=== PATIENT | female | born 1990 | race Hispanic/Latino ===

== ENCOUNTER 2018-04-17 05:50 | Inpatient (IN) | payer OTHER ==
[~2018-04-17] VITALS: Ht 152.4 cm; Wt 79.8 kg
[2018-04-17 07:18] VITALS: BP 92/60
[2018-04-17] MEDS ORDERED: PRENATABS RX T1 EACH PO (07:19)
--- NOTE | 2018-04-17 07:34 | History & Physical Pre-Op ---
General Information and HPI MD Statement: I have seen and personally examined MAU PEDERSEN and documented this H&P. The patient is a 28 year old F who presented with a patient stated chief complaint of her to have my baby []. History of Present Illness: 28-year-old 2 para 1001 at 39 weeks gestation section patient is here limited she has some CANNABIS in her urine Allergies/Medications Allergies: Coded Allergies: NO KNOWN ALLERGIES (06/02/11) Home Med list Vit #76/Iron,Carb/FA (Prenatabs Rx Tablet) 29 MG IRON-1 MG TABLET 1 TAB PO DAILY (Reported) Past History Medical History Tetanus Vaccine: Surgical History Pertinent Surgical History: Past Family/Social History Psychosocial History Smoking Status: Never Smoked Review of Systems Review of Systems: 13 point review of systems Exam & Diagnostic Data Last 24 Hrs of Vital Signs/I&O Vital Signs Date Time Temp Pulse Resp B/P B/P Pulse O2 O2 Flow FiO2 Mean Ox Delivery Rate 04/17 0718 92/60 Intake & Output 04/17 0800 04/17 0000 04/16 1600 Intake Total Output Total Balance Patient 176 lb Weight Physical Exam: PT female in no apparent distress HEENT anicteric Lungs clear Abdomen estimated weight 3400 Long and closed extremities negative edema Assessment/Plan Assessment/Plan: Assessment is term previous section section As Ranked By This Provider Problem List: 1. NORMAL
--- NOTE | 2018-04-17 08:48 | Operative Report ---
Operative/Inv Procedure Report Surgery Date: 04/17/18 Name of Procedure: Repeat low flap transverse section Via Pfannenstiel skin incision Pre-Operative Diagnosis: Term previous section Post-Operative Diagnosis: Same Estimated Blood Loss: 712 Surgeon/Take Up Supervisor: Deuce SKELTON,Alexandra Burnette then Anesthesia: block Operative/Procedure Note Note: Procedure note patient was taken to the operating room placed after adequate spinal anesthesia testing surgery timeout the abdomen was prepped with old Pfannenstiel skin incision skin was carried down to rectus fascia rectus sheath was dissected over the abdominal wall was clear. Sharply. No cavity was entered bluntly oblate amount was placed in the incision this point the visceral peritoneum was a bladder flap was developed in the lower uterine segment. was delivered of the abdominal wall was cut and the infant was handed to pediatricians waiting delivery to aid in the resuscitation. Placenta was manually noted to be intact the uterus is likely due to retrolisthesis received with her membranes intravenous fluids intramyometrial as well as intramuscular Methergine was used for uterine contractility was apparent use is also a long locked suture of 0.1 locking suture interrupted [id number] stasis this point the abdomen was irrigated to clear. He is 0.0 at this point the fascia was reapproximated with #1 Findings: Viable female infant three-vessel cord normal tubes and ovaries bilaterally adhesions from the bladder to the lower uterine segment
[2018-04-18 06:42] LABS: ABSOLUTE BASOPHIL COUNT 0 /CUMM (0.0-0.2); ABSOLUTE EOSINOPHIL COUNT 0.1 /CUMM (0.0-0.7); ABSOLUTE GRANULOCYTE CT 7.4 /CUMM (1.4-6.5); ABSOLUTE LYMPH COUNT 1.1 /CUMM (1.2-3.4); ABSOLUTE MONOCYTE COUNT 0.9 /CUMM (0.10-0.60); BASOPHIL % 0.3 % (0.0-2.0); EOSINOPHIL % 1.3 % (0-5); GRANULOCYTE % 77.5 % (42.2-75.2); HEMATOCRIT 28.6 % (37-47); MEAN CORPUSCULAR HGB 26.5 PG (27.0-31.0); MEAN CORPUSCULAR HGB CONC 32.3 G/DL (33.0-37.0); MEAN PLATELET VOLUME 8.3 FL (7.4-10.4); PLATELET COUNT 302 /CUMM (130-400); RBC DISTRIBUTION WIDTH 15.9 % (11.5-14.5); RED BLOOD CELL CT 3.49 /CUMM (4.20-5.40); WHITE BLOOD CELL COUNT 9.6 /CUMM (4.8-10.8)
--- NOTE | 2018-04-18 10:00 | PN- Post Delivery/GYN ---
Subjective Subjective: NO C/O; POS FLATUS; PAIN WELL CONTROLED Review of Systems: NEG Objective Last 24 Hrs of Vital Signs/I&O VSS AFEBRILE Physical Exam: ABD: SOFT NT INCISION C/D/I EXT: NT Assessment/Plan Assessment/Plan S/P R C/S POD1 STABLE D/C PEREIRA ADVANCE DIET INCREASE ACTIVITY Problem List: 1. NORMAL
[2018-04-18] MEDS ORDERED: IBUPROFEN800 M1 PO (10:25)
[2018-04-18] MEDS ORDERED: PERCOCET 5-3251 EACH PO (10:25)
[2018-04-18] MEDS ORDERED: DOCUSATE SODIU100 M3 PO (10:26)
--- NOTE | 2018-04-19 11:01 | PN- Post Delivery/GYN ---
Subjective Subjective: NO C/O; DESIRES DISCHATRGE HOME Review of Systems: NEG Objective Last 24 Hrs of Vital Signs/I&O VSS Physical Exam: INCISION C/D/I EXT NT Assessment/Plan Assessment/Plan S/P C/S POD2 DESIRES DISCHARGE DISCHARGE HOME F/U 1 WEEK Problem List: 1. NORMAL
== END 2018-04-19 11:20 | DRG 540 ==
LOC: GNO 05:50
PROVIDERS: Specialist
PROC: 10D00Z1 Extraction of Products of Conception, Low, Open Approach (ICD-10-PCS; principal; 2018-04-17)
DX: O34.211 Maternal care for low transverse scar from previous cesarean delivery (principal); N85.8 Other specified noninflammatory disorders of uterus; Z3A.39 39 weeks gestation of pregnancy; Z37.0 Single live birth
CPT/HCPCS: GNOS; 36415; 80307; 81003; 87086; J1650; J1885; J7120